=== PATIENT | female | born 1990 | race Caucasian/White ===

== ENCOUNTER 2020-03-12 18:58 | Emergency (ER) | payer MEDICAID, OTHER ==
[~2020-03-12] VITALS: Ht 160 cm; Wt 75.0 kg
[~2020-03-12 18:58] MED LIST: AMOX875T10 PO; LIDO20SO PO
[2020-03-12] MEDS ORDERED: ketorolac tromethamine 15mg/ml inj. IM ONE (20:00)
[2020-03-12] MEDS ORDERED: diazepam 5mg tablet PO ONE (20:00)
[2020-03-12] MEDS ORDERED: oxyCODONE/APAP 5-325mg tablet PO ONE (20:45)
[2020-03-12 23:44] VITALS: BP 104/66
== END 2020-03-12 23:50 | disposition short-term general hospital (02) ==
LOC: ER 18:58
DX: M54.89 Other dorsalgia (principal); R07.81 Pleurodynia; R53.1 Weakness; R51.9 Headache, unspecified; R11.0 Nausea; G71.09 Other specified muscular dystrophies; R20.0 Anesthesia of skin; V87.7XXA Person injured in collision between other specified motor vehicles (traffic), initial encounter; Y93.89 Activity, other specified; Y92.89 Other specified places as the place of occurrence of the external cause; Y99.8 Other external cause status
CPT/HCPCS: 70450; 71045; 72125; 72131; 93005; 96372; 99285; J1885

== ENCOUNTER 2022-04-24 08:04 | Observation (INO) | payer MEDICAID ==
[2022-04-22 14:33] LABS: BASOPHILS # (AUTO) 0.1 X10'3 (0-0.2); BASOPHILS % (AUTO) 0.8 % (0-1); EOSINOPHILS % (AUTO) 0.3 % (0-6); LYMPHOCYTES # (AUTO) 1.9 X10'3 (1.1-4.8); LYMPHOCYTES % (AUTO) 29.8 % (21-51); MEAN CORPUSCULAR HGB CONC 33.5 g/dL (33.0-36.5); MEAN CORPUSCULAR VOLUME 89.3 FL (78-98); MEAN PLATELET VOLUME 8.8 FL (7.4-10.4); MONOCYTES # (AUTO) 0.4 X10'3 (0-0.9); MONOCYTES % (AUTO) 6.6 % (2-12); NEUTROPHILS # (AUTO) 3.9 X10'3 (1.8-7.7); NEUTROPHILS % (AUTO) 62.5 % (42-75); PRE OP HEMATOCRIT 42.6 % (35.0-45.0); PRE OP HEMOGLOBIN 14.3 g/dL (12.0-16.0); PRE OP PLATELET COUNT 244 X10'3 (140-440); RED BLOOD COUNT 4.77 X10'6 (4.20-5.60); RED CELL DISTRIBUTION WIDTH 12.6 % (11.5-14.5)
[2022-04-22 14:45] LABS: ALBUMIN 4.5 G/DL (3.4-5.0); ALBUMIN/GLOBULIN RATIO 1.3 (1.1-1.5); ALKALINE PHOSPHATASE 50 IU/L (46-116); BLOOD UREA NITROGEN 6 MG/DL (7-18); BUN/CREATININE RATIO 8.8 (6.6-38.0); CALCIUM 9.5 MG/DL (8.5-10.1); CHLORIDE 104 MMOL/L (99-107); CREATININE 0.68 MG/DL (0.40-0.90); PRE OP ALT 20 U/L (30-65); PRE OP ANION GAP 5 (8-16); PRE OP AST 14 U/L (10-37); PRE OP BILIRUB, TOTAL 0.5 MG/DL (0.0-1.0); PRE OP GLUCOSE 82 MG/DL (70-104); PRE OP POTASSIUM 3.6 MMOL/L (3.4-5.1); PRE OP SODIUM 137 MMOL/L (135-145); TOTAL CARBON DIOXIDE 27.9 MMOL/L (24-32); TOTAL PROTEIN 8.1 G/DL (6.4-8.2); eGFR > 90 ML/MIN
[2022-04-22 14:50] LABS: HCG SERUM QL NEGATIVE
[2022-04-24] VITALS (17 sets, daily range): BP systolic 95–123; BP diastolic 52–72
[~2022-04-24] VITALS: Ht 160 cm; Wt 66.5 kg
[~2022-04-24 08:04] MED LIST changes: +AMIT75TA7 PO; -AMOX875T10 PO; +BUPR-317 PO; +DOCUMENT DATE & TIME OF BETA-BLOCKER PO ONE; -LIDO20SO PO; +MULT-1130 PO; +PRENATAL VITAMIN PO; +PRIMROSE OIL; +PROP20TA6 PO; +VITAMIN B PO; +[UNRECOGNIZED DRUG - OTHER]; +acetaminophen 325mg tablet PO ONE; +ceFAZolin inj. 2,000 MG in dextrose 5%-water 100 ML IV ONE; +ceFOXitin 2GM-NS 100mL ADDvant 100 ML IV ONE; +celeCOXIB 100mg capsule PO ONE; +famotidine 20mg tablet PO ONE; +gabapentin 300mg capsule PO ONE; +meperidine/PF 25mg/ml syringe IV PRN; +morphine 2 MG/ML inj. syringe IV PRN; +morphine 4 MG/ML inj SYRINge IV PRN; +ondansetron/PF 4mg/2ml inj IV PRN; +phenazopyridine 100mg tablet PO ONE; +proCHLORperazine 10 MG/2 ml inj IV PRN; +ringers solution, lacted 1,000 ML IV SCH
[2022-04-24] MEDS ORDERED: ceFAZolin 1000mg inj ONE (08:45)
[2022-04-24] MEDS ORDERED: BUPIVAcaine 0.5% inj/PF 30 ML ONE (08:45)
[2022-04-24] MEDS ORDERED: LIDOcaine 1% 30ml preserv. free vial ONE (08:45)
[2022-04-24] MEDS: ringers solution, lacted 1,000 ML IV SCH ×4 (08:50→20:31)
[2022-04-24] MEDS ORDERED: aprepitant 40mg capsule PO ONE (09:56)
[2022-04-24] MEDS ORDERED: midazolam 1 mg/ML 2ml injection ONE (10:09)
[2022-04-24] MEDS ORDERED: dexamethasone sod phosphate 10mg/ml inj ONE (10:10)
[2022-04-24] MEDS ORDERED: ondansetron/PF 4mg/2ml inj ONE (10:10)
[2022-04-24] MEDS ORDERED: fentaNYL /PF 50mcg/ml 5ml ampule ONE (10:10)
[2022-04-24] MEDS ORDERED: rocuronium 10mg/ml inj IV ONE (10:10)
[2022-04-24] MEDS ORDERED: sevoflurane 250ml liquid IH ONE (10:10)
[2022-04-24] MEDS ORDERED: propofol inj 20 ML IV ONE (10:10)
[2022-04-24] MEDS ORDERED: LIDOcaine 1%/PF 5ML 10 MG/ML VIAL ONE (10:10)
[2022-04-24] MEDS ORDERED: BUPIVAcaine 0.5% inj/PF 30 ml vial IJ ONE (11:15)
[2022-04-24] MEDS ORDERED: ceFAZolin 1000mg inj IR ONE (12:07)
[2022-04-24] MEDS ORDERED: epiNEPHrine 1 mg/ml inj ONE (12:21)
[2022-04-24] MEDS ORDERED: LIDOcaine 1% w/EPI 1:100,000 30ml vial (MDV) IJ ONE (12:24)
[2022-04-24] MEDS ORDERED: ketorolac trometh. 30mg/ml inj. ONE (12:40)
[2022-04-24] MEDS ORDERED: meperidine/PF 25mg/ml syringe ONE (13:13)
--- NOTE | 2022-04-24 13:35 | NUR ---
Received from OR via HOSPITAL BED, accompanied by Anesthesiologist and report given by MATTHEW Anesthesiologist. PT IS STILL SLEEPY AND RESPONDS TO VERBAL STIMULI. VSS. PT RECEIVING 8L O2 TO MASK AND TOLERATING WELL, O2 SAT > 96%. PT RR IS 14-17. WILL TITRATE O2 DOWN PT TOLERATES. PT HAS 20G PIV TO RIGHT AC WITH LR INFUSING @ 100ML/HR ORDERED. PT HAS 3 SMALL ABDOMEN INCISION SITES THAT ARE CDI, ALEXY PAD IS CDI. ACKERMAN CATHETER DRAINING CLEAR URINE. PT RESTING COMFORTABLY. WILL CONTINUE TO ASSESS. Addendum: 04/24/22 at 1409 by Ollie Moya RN Amended: Links added.
[2022-04-24] MEDS ORDERED: magnesium hydroxide 30ml (MOM) UD suspension PO PRN (14:10)
[2022-04-24] MEDS ORDERED: mag hydrox/Alum hydrox/simeth 30ml oral suspension PO PRN (14:10)
[2022-04-24] MEDS ORDERED: HYDROmorphone/PF 0.2 MG/ML SYRINGE IV PRN (14:10)
[2022-04-24] MEDS ORDERED: oxyCODONE IR 5mg (immed. release) tablet PO PRN (14:10)
[2022-04-24] MEDS ORDERED: diphenhydrAMINE 50 mg/ml inj IV PRN (14:10)
[2022-04-24] MEDS ORDERED: LORazepam 2 mg/ml vial IV PRN (14:10)
[2022-04-24] MEDS ORDERED: temazepam 15mg capsule PO PRN (14:10)
[2022-04-24] MEDS ORDERED: ondansetron/PF 4mg/2ml inj IV PRN (14:10)
--- NOTE | 2022-04-24 14:23 | NUR ---
Patient in room . I have received report from Ollie JORDAN and had the opportunity to ask questions will assume pt care when pt comes to floor.
--- NOTE | 2022-04-24 14:25 | NUR ---
PATIENT HAS MET ALL CRITERIA FOR TRANSFER TO SURGICAL FLOOR. VSS. DRESSINGS INTACT. BED LOW, CALL LIGHT PRESENT AND 2 RAILS UP. RN PRESENT TO ACCEPT CARE OF PATIENT AND REPORT HAS BEEN CALLED. ALL QUESTIONS ANSWERED TO ACCEPTING RN. Addendum: 04/24/22 at 1437 by Ollie Moya RN Amended: Links added.
[2022-04-24] MEDS: simethicone 80mg chew tab PO SCH (17:19)
[2022-04-24] MEDS: ketorolac trometh. 30mg/ml inj. IV SCH (20:30)
[2022-04-24] MEDS: docusate sod 100mg capsule PO SCH (20:30)
[2022-04-24] MEDS: acetaminophen 325mg tablet PO SCH (20:31)
[2022-04-24] MEDS: oxyCODONE IR 5mg (immed. release) tablet PO PRN (21:46)
[2022-04-25] MEDS: acetaminophen 325mg tablet PO SCH ×2 (01:57→10:03)
[2022-04-25] MEDS: ketorolac trometh. 30mg/ml inj. IV SCH ×2 (01:58→08:39)
[2022-04-25 02:00] VITALS: BP 99/61
[2022-04-25] MEDS: oxyCODONE IR 5mg (immed. release) tablet PO PRN ×2 (04:19→09:31)
[2022-04-25 04:55] LABS: BASOPHILS % (AUTO) 0.2 % (0-1); EOSINOPHILS % (AUTO) 0.2 % (0-6); HEMATOCRIT 32.2 % (35.0-45.0); HEMOGLOBIN 10.9 g/dl (12.0-16.0); LYMPHOCYTES # (AUTO) 0.8 X10'3 (1.1-4.8); LYMPHOCYTES % (AUTO) 12.3 % (21-51); MEAN CORPUSCULAR HEMOGLOBIN 30.2 PG (27.0-31.0); MEAN CORPUSCULAR HGB CONC 33.8 g/dL (33.0-36.5); MEAN CORPUSCULAR VOLUME 89.6 FL (78-98); MEAN PLATELET VOLUME 9.9 FL (7.4-10.4); MONOCYTES # (AUTO) 0.6 X10'3 (0-0.9); MONOCYTES % (AUTO) 9.3 % (2-12); NEUTROPHILS # (AUTO) 5.1 X10'3 (1.8-7.7); PLATELET COUNT 146 X10'3 (140-440); RED BLOOD COUNT 3.59 X10'6 (4.20-5.60); RED CELL DISTRIBUTION WIDTH 12.9 % (11.5-14.5); WHITE BLOOD COUNT 6.6 X10'3 (4.5-11.0)
[2022-04-25 05:35] LABS: ANION GAP 6 (8-16); BLOOD UREA NITROGEN 5 MG/DL (7-18); BUN/CREATININE RATIO 10.4 (6.6-38.0); CALCIUM 7.9 MG/DL (8.5-10.1); CHLORIDE 105 MMOL/L (99-107); CREATININE 0.48 MG/DL (0.40-0.90); GLUCOSE 100 MG/DL (70-104); POTASSIUM 3.7 MMOL/L (3.5-5.1); SODIUM 136 MMOL/L (135-145); TOTAL CARBON DIOXIDE 24.8 MMOL/L (24-32); eGFR > 90 ML/MIN
[2022-04-25] MEDS: ringers solution, lacted 1,000 ML IV SCH (05:38)
--- NOTE | 2022-04-25 06:05 | NUR ---
Problems reprioritized. Patient report given, questions answered & plan of care reviewed with Arlene JORDAN. Addendum: 04/25/22 at 0606 by Krystin Stiles RN Amended: Links added.
--- NOTE | 2022-04-25 06:51 | NUR ---
Patient in room [facility]. I have received report from Arlene JORDAN and had the opportunity to ask questions and assume patient care.
[2022-04-25 07:24] VITALS: BP 104/57
[2022-04-25] MEDS: simethicone 80mg chew tab PO SCH ×2 (08:00→13:00)
[2022-04-25 10:00] VITALS: BP 101/62
[2022-04-25] MEDS: docusate sod 100mg capsule PO SCH (10:01)
--- NOTE | 2022-04-25 18:46 | NUR ---
Pt discharged to home with discharge instructions on laparoscopic vaginal hysterectomy and salpingectomy as well as follow up instructions. IV was removed, wood floor layer transported pt via wheelchair to lobby with friend awaiting waste picker.
== END 2022-04-25 13:47 | disposition home or self-care (01) ==
LOC: PAS 08:04 → SUR 3N 14:15 → PAS 14:30 → SUR 3N 14:30
PROVIDERS: ADMIT Obstetrics & Gynecology; ATTEND Obstetrics & Gynecology
DX: N94.6 Dysmenorrhea, unspecified (principal); N80.03 Adenomyosis of the uterus; N80.9 Endometriosis, unspecified; N92.0 Excessive and frequent menstruation with regular cycle; N83.202 Unspecified ovarian cyst, left side; N39.3 Stress incontinence (female) (male); Z79.899 Other long term (current) drug therapy
CPT/HCPCS: 36415; 51992; 57425; 58552; 80048; 80053; 82948; 84703; 85025; 86885; 86900; 86901; 87081; 96365; 96375; 96376; C1758; C1771; G0378; J0171; J0690; J0694; J1100; J1885; J2175; J2250; J2270; J2405; J2704; J3010; J3490; J7120; J8501; S0020; A4618; A7000

== ENCOUNTER 2023-09-14 12:37 | Emergency (ER) | payer MEDICAID ==
[~2023-09-14] VITALS: Ht 160 cm; Wt 69.1 kg
[~2023-09-14 12:37] MED LIST changes: -DOCUMENT DATE & TIME OF BETA-BLOCKER PO ONE; -[UNRECOGNIZED DRUG - OTHER]; -acetaminophen 325mg tablet PO ONE; -ceFAZolin inj. 2,000 MG in dextrose 5%-water 100 ML IV ONE; -ceFOXitin 2GM-NS 100mL ADDvant 100 ML IV ONE; -celeCOXIB 100mg capsule PO ONE; -famotidine 20mg tablet PO ONE; -gabapentin 300mg capsule PO ONE; -meperidine/PF 25mg/ml syringe IV PRN; -morphine 2 MG/ML inj. syringe IV PRN; -morphine 4 MG/ML inj SYRINge IV PRN; -ondansetron/PF 4mg/2ml inj IV PRN; -phenazopyridine 100mg tablet PO ONE; -proCHLORperazine 10 MG/2 ml inj IV PRN; -ringers solution, lacted 1,000 ML IV SCH
[2023-09-14 13:04] VITALS: BP 126/85; PULSE 89; RESP 18; TEMP 97.9; O2SAT 100
[2023-09-14 13:32] LABS: BILIRUBIN,URINE NEGATIVE (Neg); CLARITY,URINE CLEAR (Clear); COLOR,URINE YELLOW (Yellow); GLUCOSE, URINE NEGATIVE (Neg); KETONES,URINE NEGATIVE (Neg); LEUKOCYTE ESTERASE ,URINE MODERATE (Neg); NITRITES, URINE NEGATIVE (Neg); OCCULT BLOOD,URINE LARGE (Neg); PH,URINE 5.5 (4.8-8.0); PROTEIN,URINE NEGATIVE (Neg); UROBILINOGEN,URINE 0.2 E.U/dL (0.2-1.0)
[2023-09-14 13:35] LABS: UA COLLECTION TYPE CLN CATCH MIDSTREAM
[2023-09-14 13:37] LABS: SQUAMOUS EPITHELIAL CELL,UR FEW /LPF (FEW)
[2023-09-14 13:38] LABS: WBC,URINE 50-100 /HPF (0-4); YEAST FEW /HPF (NEGATIVE)
[2023-09-14 13:39] LABS: BACTERIA,URINE 1+ /HPF (Neg)
[2023-09-14] MEDS ORDERED: PHEN-716 PO (14:34)
[2023-09-14] MEDS ORDERED: CEPH-585 PO (14:34)
[2023-09-14] MEDS: phenazopyridine 100mg tablet PO ONE (14:57)
[2023-09-14] MEDS: CefTRIAXone 1000mg IM Kit (w/lidocaine diluent) IM ONE (14:57)
== END 2023-09-14 15:06 | disposition home or self-care (01) ==
LOC: ER 12:38
DX: N39.0 Urinary tract infection, site not specified (principal); Z88.5 Allergy status to narcotic agent; Z79.899 Other long term (current) drug therapy
CPT/HCPCS: 81001; 87088; 96372; 99283; J0696